=== PATIENT | female | born 1965 | race Asian ===

== ENCOUNTER 2017-04-21 22:07 | Emergency (ER) | payer BC, OTHER ==
--- NOTE | 2017-04-21 23:15 | EDPHY ---
H & P Stated Complaint: poss ax rxn to augmentin for sinus infection? HPI/ROS: CHIEF COMPLAINT: Itchy rash HISTORY OF PRESENT ILLNESS: This is a 51-year-old female with 3 day history of pruritic rash. Two days ago she completed a 10 day course of Augmentin that was prescribed for URI. The rash began 2 days later. She 1st noticed it around the ears but it has subsequently spread to involve her entire body. Tonight she took 25 mg of Benadryl about 2 hours ago. Aside from the Augmentin she has no new medications. She is taking acyclovir for oral herpes that developed 4 days ago. She also reports some ankle tenderness. REVIEW OF SYSTEMS: A ten point review of systems was performed and is negative with the exception of the items mentioned in the HPI. Past medical history: Negative Past surgical history: Lumpectomy, benign Family history: Mother with diabetes Social history: She is . She denies tobacco products. She drinks alcohol very rarely. General Appearance: Alert. Vital signs reviewed. Eyes: Pupils equal and round, no conjunctival injection, no discharge. Anicteric. ENT, Mouth: Mucous membranes are moist, no oropharyngeal erythema or edema. Swallowing easily. Neck: No lymphadenopathy, supple. Trachea midline. No thyromegaly. Respiratory: Lungs are clear to auscultation; no wheezes, rales, or rhonchi. Cardiovascular: Regular rate and rhythm; no murmur, rub, or gallop. Gastrointestinal: Abdomen is soft and nontender, no masses or organomegaly, bowel sounds normal. Skin: Warm and dry. Scattered hives intermixed with a maculopapular erythematous rash involving all areas of the body Extremities: Nontender to palpation of left lateral malleolus. No swelling. No warmth. Neurological: Alert and oriented. Moving all four extremities easily and equally. Psychiatric: Normal affect. - Personal History LMP (Females 10-55): 15-21 Days Ago Current Tetanus/Diphtheria Vaccine: Unsure - Medical/Surgical History Hx Asthma: No Hx Chronic Respiratory Disease: No Hx Diabetes: No Hx Cardiac Disease: No Hx Renal Disease: No Hx Cirrhosis: No Hx Alcoholism: No Hx HIV/AIDS: No Hx Splenectomy or Spleen Trauma: No Other PMH: PMHx: denies. PSHx: lumpectomy - Social History Smoking Status: Never smoked Constitutional: Initial Vital Signs Temperature (C) 36.7 C 04/22/17 00:11 Heart Rate 76 04/22/17 00:11 Respiratory Rate 16 04/22/17 00:11 Blood Pressure 110/62 04/22/17 00:11 O2 Sat (%) 97 04/22/17 00:11 O2 Delivery Mode Room Air Allergies/Adverse Reactions: amoxicillin [From Augmentin] Allergy (Verified 04/21/17 22:22) clavulanic acid [From Augmentin] Allergy (Verified 04/21/17 22:22) sulfamethoxazole [From Bactrim] Allergy (Verified 04/21/17 22:22) trimethoprim [From Bactrim] Allergy (Verified 04/21/17 22:22) Home Medications: Medication Instructions Recorded Ciarra 28 Tablet 04/21/17 ZYRTEC 04/21/17 predniSONE 20 mg PO BID #6 tablet 04/21/17 Medical Decision Making ED Course/Re-evaluation: Re-evaluated at midnight after receiving benadryl 25 mg, pepcid 40 mg, and prednisone 60 mg--all PO. She is resting comfortably and would like to go home. No airway compromise. We discussed the possibility of this being a drug rash/reaction. She is no longer taking an antibiotic and the timing of her rash makes it less likely to be related to the Augmentin. However, she will avoid these antibiotics. She will continue with prednisone, H2 anastasia, and antihistamine such as benadryl. We also discussed FU with an retail field supervisor. The etiology of her rash remains unknown. It does look like an allergic reaction. I do not suspect an infection. Appearance not consistent with contact dermatitis. Differential Diagnosis: Considered a differential diagnosis that includes but is not limited to anaphylaxis, urticaria, allergic reaction, arthropathy, and infection. - Data Points Medications Given: Discontinued Medications Diphenhydramine HCl (Benadryl) 25 mg PO EDNOW ONE Stop: 04/21/17 23:31 Last Admin: 04/21/17 23:35 Dose: 25 mg Famotidine (Pepcid) 40 mg PO EDNOW ONE Stop: 04/21/17 23:31 Last Admin: 04/21/17 23:35 Dose: 40 mg Prednisone (Prednisone) 60 mg PO EDNOW ONE Stop: 04/21/17 23:31 Last Admin: 04/21/17 23:35 Dose: 60 mg Departure - Departure Disposition: Home, Routine, Self-Care Clinical Impression: Allergic reaction Qualifiers: Encounter type: initial encounter Qualified Code(s): T78.40XA - Allergy, unspecified, initial encounter Condition: Good Instructions: Urticaria (ED), Allergies (ED) Additional Instructions: Take the prednisone twice daily, starting tomorrow morning. Take Pepcid (over the counter) per the instructions on the box for the next three days. Continue with benadryl, 25-50 mg every 6-8 hours. This will make you sleepy. If you would prefer to try an antihistamine that is less sedating it is okay to do so (Claritin or Zyrtec). Try SARNA lotion for itching (you can buy this over the counter). The Aveeno anti-itch products are also good. I do not know what has caused this rash, but it looks like an allergic reaction. You will need to see an retail field supervisor for further delineation of the possible cause. Referrals: Jackson Whiting DO [Primary Care Provider] - As per Instructions Prescriptions: predniSONE 20 mg PO BID #6 tablet
[2017-04-21] MEDS ORDERED: predniSONE 20 MG TAB PO ONE (23:30)
[2017-04-21] MEDS ORDERED: diphenhydrAMINE 25 MG CAP PO ONE (23:30)
[2017-04-21] MEDS ORDERED: FAMOTIDINE 20 MG TAB PO ONE (23:30)
[2017-04-22 00:12] VITALS: BP 110/62; PULSE 76; RESP 16; TEMP 98.1; O2SAT 97
== END 2017-04-22 00:11 | disposition home or self-care (01) ==
DX: T78.40XA Allergy, unspecified, initial encounter (principal)